=== PATIENT | male | born 1955 | race Caucasian/White ===

== ENCOUNTER → 2023-07-16 09:07 | Outpatient (REF) | payer BC, SELFPAY | LOC: RCS 09:07 | PROVIDERS: ATTENDING PHYSICIAN Internal Medicine Cardiovascular Disease; FAMILY PHYSICIAN Family Medicine | DX: R06.02 Shortness of breath (principal) | CPT/HCPCS: 93306 ==

== ENCOUNTER → 2023-12-21 09:16 | Outpatient (REF) | payer OTHER, SELFPAY | LOC: RAD 09:16 | PROVIDERS: ATTENDING PHYSICIAN Family Medicine | DX: R10.0 Acute abdomen (principal) | CPT/HCPCS: 74178; Q9967 ==

== ENCOUNTER → 2024-02-04 07:35 | Outpatient (REF) | payer OTHER, SELFPAY | LOC: DHCBC/DCA 07:35 | PROVIDERS: ATTENDING PHYSICIAN Physician Assistant Medical; FAMILY PHYSICIAN Family Medicine | DX: R06.02 Shortness of breath (principal) | CPT/HCPCS: 78452; 93017; A9500; J2785 ==